=== PATIENT | male | born 1985 | race Two or more races ===

== ENCOUNTER 2019-03-27 04:17 | Emergency (ER) | payer OTHER ==
[~2019-03-27] VITALS: Ht 180.3 cm; Wt 72.6 kg
[2019-03-27] MEDS ORDERED: KETO10TA2 PO (08:35)
[2019-03-27] MEDS ORDERED: CEFADROXIL500 MG PO (08:35)
[2019-03-27] MEDS ORDERED: SILVADENE20 GM TOP (08:52)
== END 2019-03-27 09:14 | disposition home or self-care (01) ==
LOC: ER 04:17
DX: S60.222A Contusion of left hand, initial encounter (principal); V29.88XA Motorcycle rider (driver) (passenger) injured in other specified transport accidents, initial encounter; Y93.89 Activity, other specified; Y92.89 Other specified places as the place of occurrence of the external cause; Y99.8 Other external cause status